=== PATIENT | female | born 1980 | race Caucasian/White ===

== ENCOUNTER 2023-07-06 08:50 | Outpatient (AMB) | payer BC, SELFPAY ==
--- NOTE | 2023-07-06 08:52 | A.OFFVIS_ITS ---
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 The patient states that her symptoms have gotten worse over the last few months in spite of continued non operative treatments. The patient has not been able to run because of her pain and mechanical symptoms. She has done physical therapy exercises which aggravated her pain. She does do quite a bit of lifting and kneeling at work. She has tried Tylenol and anti-inflammatory medicines which gave her minimal relief. She has also tried wearing a knee brace which gives only mild relief. She states that at times it feels like her knee is going to give out. Allergies No Known Allergies Allergy (Verified 07/06/23 09:02) [facility] Social History (Updated 07/06/23 @ 09:08 by Radha Gresham [facility] e-Cigarette/Vaping Use: Currently Using Physical Exam Vital Signs: BMI result Body Mass Index 30.4 Const Other: Well-nourished well-developed very friendly female awake alert and oriented x3 in no acute distress Extrem Other: Bilateral lower extremity examination shows good capillary refill, no skin lesions noted, normal sensation light touch Right knee examination shows a minimal effusion, minimal crepitus with range of motion, positive Kirby's test, tenderness along her medial joint line, no instability Results Reviewed Results Reviewed: Standing full weight-bearing x-rays of the patient's right knee show minimal grade 1 Kellgren joint space narrowing, no acute bony abnormalities Assessment & Plan Assessment & Plan (1) Right knee pain: Code(s): M25.561 - Pain in right knee Plan Ms. Oden presents with progressively worsening right knee pain and mechanical symptoms most likely due to tearing of her medial meniscus. Thus, I will send the patient for an MRI of her right knee for further evaluation. If she does have a significant meniscus tear I will recommend arthroscopic surgery to optimize her future functional level. She will continue with her activity modifications in the meantime. I will see her back once her MRI is completed to discuss the findings and treatment options. Feel free to call me at any time should questions regarding her orthopedic management arise. Thank you very much for asking me to see this very friendly patient. I spent 22 minutes in reviewing the patient's records and imaging studies, seeing the patient and documenting in the medical record. Orders: Orders XR knee RT 3V Today M25.561 - Pain in right knee MR knee RT wo con Today M25.561 - Pain in right knee Coding Level of Care Code New Pt Level 2 (12070) Diagnoses Right knee pain M25.561
[2023-07-06 09:00] VITALS: BMI 30.4
== END 2023-07-06 09:18 | disposition home or self-care (01) ==
PROVIDERS: Visit Provider Orthopaedic Surgery
DX: M25.561 Pain in right knee (principal)
CPT/HCPCS: 99202

== ENCOUNTER 2023-07-06 10:42 | Outpatient (REF) | payer BC, SELFPAY ==
--- NOTE | ~2023-07-06 | XR_ITS ---
EXAMINATION: XR KNEE, RIGHT CLINICAL INFORMATION: Pain of the right knee COMPARISON: None available. TECHNIQUE: Three views of the right knee. FINDINGS: No fracture or joint effusion. Alignment is anatomic. Joint spaces are maintained. No abnormal soft tissue calcification. XR/XR knee RT 3V IMPRESSION: Normal right knee.
== END 2023-07-06 10:43 | disposition home or self-care (01) ==
LOC: HO.HOSX 10:42
PROVIDERS: Visit Provider Orthopaedic Surgery
DX: M25.561 Pain in right knee (principal)
CPT/HCPCS: 73562

== ENCOUNTER 2023-07-20 17:20 | Outpatient (REF) | payer BC, SELFPAY ==
--- NOTE | ~2023-07-20 | MR_ITS ---
EXAMINATION: MR KNEE WITHOUT CONTRAST, RIGHT CLINICAL INFORMATION: Right knee pain. Crepitus. COMPARISON: Right knee radiographs dated 07/06/2023. TECHNIQUE: MRI of the knee without contrast was performed using routine sequences on a high-field scanner. FINDINGS: MENISCI: Medial Meniscus: Intact. Lateral Meniscus: Intact. LIGAMENTS: Cruciate: Intact. Collateral: Intact. EXTENSOR MECHANISM: Mild patella logan with the Insall-Salvati ratio measuring 1.55. Borderline elevated TT-TG distance measuring 1.5 cm. Minimal edema within the superolateral aspect of Hoffa's fat pad, which can be seen in the setting of patellar tendon-lateral femoral condyle friction syndrome. ARTICULAR CARTILAGE/BONE: Patellofemoral Compartment: Patellar median ridge and lateral patellar facet articular cartilage signal heterogeneity with minimal subchondral cystic change. Tiny patellar marginal osteophytes. Medial Compartment: Intact articular cartilage. Lateral Compartment: Intact articular cartilage. JOINT FLUID AND BURSAE: Trace joint effusion. MR/MR knee RT wo con IMPRESSION: 1. No acute meniscal or ligamentous injury. 2. Mild patella logan with borderline elevated TT-TG distance. Minimal edema within the superolateral aspect of Hoffa's fat pad, which can be seen in the setting of patellar tendon-lateral femoral condyle friction syndrome. 3. Mild patellofemoral arthrosis. Trace joint effusion.
== END 2023-07-20 17:21 | disposition home or self-care (01) ==
LOC: HO.MRI 17:20
PROVIDERS: Visit Provider Orthopaedic Surgery
DX: M25.561 Pain in right knee (principal)
CPT/HCPCS: 73721

== ENCOUNTER 2023-07-27 12:54 | Outpatient (AMB) | payer BC, SELFPAY ==
[2023-07-27 12:56] VITALS: BMI 30.4
--- NOTE | 2023-07-27 12:56 | MHC.OFFVIS ---
Intake Vital Signs 07/27/23 12:56 Height 5 ft 4 in Weight 177 lb BMI 30.4 Intake Visit Reasons: ov-MRI Knee RT review Intake Note: Carine is a 42 year old female who presents for a MRI review of her Right knee. The patient describes her right knee pain as achy in nature. She does notice a popping sensation when she is going up and down stairs. She has not yet returned to running. Allergies No Known Allergies Allergy (Verified 07/27/23 13:00) Medication List - Last Reconciled 07/27/23 by Casey Hearn MD No Known Home Meds [facility] Social History e-Cigarette/Vaping Use: Currently Using Physical Exam Vital Signs: BMI result Body Mass Index 30.4 Const Other: Well-nourished well-developed very friendly female awake alert and oriented x3 in no acute distress Extrem Other: Bilateral lower extremity examination shows good capillary refill, no skin lesions noted, normal sensation light touch Right knee examination shows a minimal effusion, minimal crepitus with range of motion, negative Kirby's test, no instability Results Reviewed Results Reviewed: MRI of the patient's right knee shows mild diffuse degenerative changes, no evidence of meniscus tearing Assessment & Plan Assessment & Plan (1) Right knee pain: Code(s): M25.561 - Pain in right knee Plan Ms. 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 I had a lengthy discussion with the patient regarding the treatment options. The patient is interested in proceeding with a viscosupplementation injection. I will see her back once the injection is available. She will contact me prior to that time should her symptoms worsen in any way. I spent 19 minutes in reviewing the patient's records and imaging studies, seeing the patient and documenting in the medical record. Coding Level of Care Code Est Pt Level 2 (46988) Diagnoses Right knee pain M25.561
== END 2023-07-27 13:15 | disposition home or self-care (01) ==
PROVIDERS: Visit Provider Orthopaedic Surgery
DX: M25.561 Pain in right knee (principal)
CPT/HCPCS: 99212

== ENCOUNTER → 2023-07-27 12:54 | Outpatient (BNVA) | payer BC, SELFPAY | PROVIDERS: Visit Provider Orthopaedic Surgery ==